=== PATIENT | female | born 1945 | race Caucasian/White ===

== ENCOUNTER → 2023-11-05 13:45 | Outpatient (REF) | payer MEDICARE, OTHER, SELFPAY | LOC: PAVMRI 13:45 | PROVIDERS: ATTENDING PHYSICIAN Internal Medicine Rheumatology; FAMILY PHYSICIAN Family Medicine | DX: M54.50 Low back pain, unspecified (principal) | CPT/HCPCS: 72148 ==

== ENCOUNTER → 2023-11-23 12:52 | Outpatient (REF) | payer MEDICARE, OTHER, SELFPAY ==
[2023-11-23 14:12] LABS: % Basophils 1.4 % (0-2); % Eosinophils 3.5 % (0-6); % Immature Granulocytes 0.4 % (0-0.5); % Lymphocytes 23.9 % (20.5-51.1); % Monocytes 7.9 % (1.7-9.3); % Neutrophils 62.9 % (42.2-75.2); Absolute Basophils 0.1 10^3/uL (0-0.2); Absolute Eosinophils 0.3 10^3/uL (0-0.7); Absolute Lymphocytes 1.9 10^3/uL (1.2-3.4); Absolute Monocytes 0.6 10^3/uL (0.1-0.6); Hematocrit 40.7 % (37.0-47.0); Hemoglobin 14.2 g/dL (12.0-16.0); Mean Corp Hgb Conc. 34.9 g/dL (33.0-37.0); Mean Corpuscular Hgb 31.1 pg (27.0-31.0); Mean Corpuscular Volume 89.3 fL (81.0-99.0); Mean Platelet Volume 9.4 fL (7.4-10.4); Nucleated Red Blood Cells % 0 %; Platelet Count 383 10^3/uL (130-400); Red Blood Cell Count 4.56 10^6/uL (4.20-5.40); Red Cell Dist. Width 13.5 % (11.5-14.5)
[2023-11-23 14:32] LABS: ALT (SGPT) 24 U/L (0-35); AST (SGOT) 35 U/L (14-36); Albumin 4.7 g/dl (3.5-5.0); Alkaline Phosphatase 62 U/L (38-126); Blood Urea Nitrogen 21 mg/dl (7-17); Calcium 10.5 mg/dl (8.4-10.2); Carbon Dioxide 29 mmol/L (22-30); Chloride 97 mmol/L (98-107); Glucose 105 mg/dl (70-99); Potassium 4.3 mmol/L (3.5-5.1); Sodium 135 mmol/L (135-145); Total Bilirubin 0.6 mg/dl (0.2-1.3); Total Protein 7.3 g/dl (6.3-8.2); eGFR > 60.00
== END ==
LOC: RAD 12:52
PROVIDERS: ATTENDING PHYSICIAN Internal Medicine Rheumatology; FAMILY PHYSICIAN Family Medicine
DX: M25.551 Pain in right hip (principal); E55.9 Vitamin D deficiency, unspecified; M54.50 Low back pain, unspecified; M81.0 Age-related osteoporosis without current pathological fracture; Z79.899 Other long term (current) drug therapy
CPT/HCPCS: 36415; 73502; 80053; 85025

== ENCOUNTER → 2024-06-09 14:24 | Outpatient (REF) | payer MEDICARE, OTHER, SELFPAY ==
[2024-06-09 16:23] LABS: % Basophils 1.2 % (0-2); % Eosinophils 3.9 % (0-6); % Immature Granulocytes 0.4 % (0-0.5); % Lymphocytes 31.4 % (20.5-51.1); % Neutrophils 54.1 % (42.2-75.2); Absolute Basophils 0.1 10^3/uL (0-0.2); Absolute Eosinophils 0.3 10^3/uL (0-0.7); Absolute Lymphocytes 2.4 10^3/uL (1.2-3.4); Absolute Monocytes 0.7 10^3/uL (0.1-0.6); Absolute Neutrophils 4.1 10^3/uL (1.4-6.5); Hematocrit 39.8 % (37.0-47.0); Hemoglobin 13.4 g/dL (12.0-16.0); Mean Corp Hgb Conc. 33.7 g/dL (33.0-37.0); Mean Corpuscular Hgb 29.9 pg (27.0-31.0); Mean Corpuscular Volume 88.8 fL (81.0-99.0); Mean Platelet Volume 9.2 fL (7.4-10.4); Nucleated Red Blood Cells % 0 %; Platelet Count 360 10^3/uL (130-400); Red Blood Cell Count 4.48 10^6/uL (4.20-5.40); Red Cell Dist. Width 13.2 % (11.5-14.5); White Blood Cell Count 7.7 10^3/uL (4.8-10.8)
[2024-06-09 16:33] LABS: ALT (SGPT) 22 U/L (0-35); AST (SGOT) 32 U/L (14-36); Albumin 4.5 g/dl (3.5-5.0); Alkaline Phosphatase 42 U/L (38-126); Blood Urea Nitrogen 20 mg/dl (7-17); Calcium 10.5 mg/dl (8.4-10.2); Carbon Dioxide 30 mmol/L (22-30); Chloride 97 mmol/L (98-107); Glucose 89 mg/dl (70-99); Potassium 4.4 mmol/L (3.5-5.1); Sodium 136 mmol/L (135-145); Total Bilirubin 0.4 mg/dl (0.2-1.3); Total Protein 6.7 g/dl (6.3-8.2); eGFR > 60.00
== END ==
LOC: WDC 14:24
PROVIDERS: ATTENDING PHYSICIAN Internal Medicine Rheumatology; FAMILY PHYSICIAN Family Medicine
DX: Z12.31 Encounter for screening mammogram for malignant neoplasm of breast (principal); E55.9 Vitamin D deficiency, unspecified; M25.551 Pain in right hip; M54.50 Low back pain, unspecified; M81.0 Age-related osteoporosis without current pathological fracture; Z79.899 Other long term (current) drug therapy
CPT/HCPCS: 36415; 77063; 77067; 80053; 85025

== ENCOUNTER → 2024-07-14 06:43 | Outpatient (REF) | payer MEDICARE, OTHER, SELFPAY ==
[2024-07-14 07:38] LABS: Ionized Calcium 1.27 mMOL/L (1.15-1.33)
[2024-07-14 08:13] LABS: Calcium 10.7 mg/dl (8.4-10.2); Total Cholesterol 274 mg/dl (50-199); Triglyceride 111 mg/dl (10-149); Very Low Density Lipoprotein 22 mg/dl (0-30)
[2024-07-14 08:24] LABS: HDL Cholesterol 116 mg/dl; LDL Cholesterol, Calculated 136 mg/dl
[2024-07-14 08:29] LABS: Glycohemoglobin (HgbA1c) 5.6 % (4.0-5.6)
[2024-07-14 08:43] LABS: TSH Reflex To Free T4 2.13 uIU/ml (0.47-4.68)
[2024-07-15 10:15] LABS: Intact PTH 86.8 pg/ml (13.6-85.8)
== END ==
LOC: RAD 06:43
PROVIDERS: ATTENDING PHYSICIAN Family Medicine
DX: I71.40 Abdominal aortic aneurysm, without rupture, unspecified (principal); R73.01 Impaired fasting glucose; E83.52 Hypercalcemia; E78.00 Pure hypercholesterolemia, unspecified
CPT/HCPCS: 36415; 76770; 80061; 82330; 83036; 83970; 84443

== ENCOUNTER 2025-02-02 15:06 | Emergency (ER) | payer MEDICARE, OTHER, SELFPAY ==
[2025-02-02 15:17] VITALS: BP 174/104
[2025-02-02 16:01] VITALS: BP 169/80
[2025-02-02 16:54] VITALS: BP 158/77
[2025-02-02 17:06] LABS: % Basophils 1.3 % (0-2); % Eosinophils 6.6 % (0-6); % Immature Granulocytes 0.3 % (0-0.5); % Monocytes 9.4 % (1.7-9.3); % Neutrophils 59.4 % (42.2-75.2); Absolute Basophils 0.1 10^3/uL (0-0.2); Absolute Eosinophils 0.5 10^3/uL (0-0.7); Absolute Lymphocytes 1.6 10^3/uL (1.2-3.4); Absolute Monocytes 0.6 10^3/uL (0.1-0.6); Absolute Neutrophils 4.1 10^3/uL (1.4-6.5); Hematocrit 38.8 % (37.0-47.0); Hemoglobin 13.5 g/dL (12.0-16.0); Mean Corp Hgb Conc. 34.8 g/dL (33.0-37.0); Mean Corpuscular Hgb 30.2 pg (27.0-31.0); Mean Corpuscular Volume 86.8 fL (81.0-99.0); Mean Platelet Volume 8.5 fL (7.4-10.4); Nucleated Red Blood Cells % 0 %; Platelet Count 299 10^3/uL (130-400); Red Blood Cell Count 4.47 10^6/uL (4.20-5.40); Red Cell Dist. Width 13.3 % (11.5-14.5); White Blood Cell Count 6.8 10^3/uL (4.8-10.8)
[2025-02-02 17:20] LABS: Albumin 4.4 g/dl (3.5-5.0); Blood Urea Nitrogen 17 mg/dl (7-17); Calcium 10.3 mg/dl (8.4-10.2); Chloride 102 mmol/L (98-107); Potassium 4.4 mmol/L (3.5-5.1); Sodium 133 mmol/L (135-145); Total Bilirubin 0.4 mg/dl (0.2-1.3)
[2025-02-02 17:23] LABS: Erythrocyte Sed Rate 12 mm/hour (0-20)
[2025-02-02 17:30] LABS: ALT (SGPT) 28 U/L (0-35); AST (SGOT) 34 U/L (14-36); Alkaline Phosphatase 60 U/L (38-126); Carbon Dioxide 26 mmol/L (22-30); Glucose 111 mg/dl (70-99); Total Protein 6.9 g/dl (6.3-8.2); eGFR > 60.00
[2025-02-02] MEDS: VIBRAMYCIN 100 MG PO (17:40)
--- NOTE | 2025-02-02 22:52 | ED.MUSCINJ ---
Addendum entered and electronically signed by Renzo Conde PA-C 02/06/25 08:20:
Pulmonary Lyme test positive. She has had Lyme in the past. Western blot is pending currently on doxycycline
Original Note:
HPI-Injury
General
Chief Complaint: Musculo-Skeletal Complaint
Source: patient
Exam Limitations: none
Time Seen by Provider: 02/02/25 15:38
Nursing documentation reviewed up to this point in time: agreed with
History of Present Illness-Injury
Is this injury a work related problem?: No
Is pt an associate of [facility]?: No
Initial Injury comments:
Patient to ED with complaint of swelling to left ankle. No history of trauma. Noted swelling this AM. Denies fever/chills, recent illness. Denies pain. SHe states she has had lyme disease multiple times in the past. SHe had an extra dose of
doxy at home and she took med this AM. Brought to ED by friend for eval. No prior history of anklke swelling.
Review of Systems
Review of Systems
Allergies reviewed?: Yes
All Other Systems: ROS reviewed and negative except as documented in HPI and ROS
Constitutional: Reports no symptoms
EENT: Reports no symptoms
Respiratory: Reports no symptoms
Cardiac: Reports no symptoms
ABD/GI: Reports no symptoms
Musculoskeletal: Reports joint swelling (swelling to left ankle)
Skin: Reports no symptoms
Neurological: Reports no symptoms
Psychiatric: Reports no symptoms
Musculoskeletal Injury Exam
Musculoskeletal Injury Exam
Left Ankle:
Pain with Movement?: None
Tender to palpation?: None
Soft tissue swelling?: Moderate
External deformity and angulation?: None
Joint effusion?: None
Contusion?: None
Hematoma-local bleeding into tissue?: None
Strain- Sprain- Tear (Connective tissue injury)?: None
Crepitus with movement?: No
Joint instability?: No
Malalignment/deformity?: No
Range of motion: Full
Distal skin color and temperature: normal-warm & good color
Capillary Refill: normal
Normal distal neurovascular exam?: Yes
Phy Exam
General Physical Exam
General Presentation: well appearing and no apparent distress
General age: appears stated age
General Skin: warm and dry
General Habitus: normal
General Mental: alert
Neurological Exam
Neurological Exam: alert, oriented x3, no motor deficits, no sensory deficits, speech normal and normal gait
Musculoskeletal Exam
Musculoskeletal Exam: full ROM and neuro vasc intact
Skin Exam
Skin Exam: normal color, warm/dry and no rash
Psychiatric Exam
Psychiatric Exam: normal mood/affect
Injury Course
Orders/Labs/Results
Orders:
Orders
02/02/25 15:22
Ankle, left 3 view CR [CR Ankle - Left Min 3 Views ] Urgent
Comment:
Reason For Exam: swelling
02/02/25 15:47
Periph Venous Lwr Ext Left US [US Periph Venous LOWER Ext LT] Urgent
Comment:
Reason For Exam: lower leg swelling
02/02/25 17:00
CRP [C-Reactive Protein] Urgent
Complete Blood Count/With Diff Urgent
Comprehensive Metabolic Panel Urgent
Lyme Progressive Urgent
Sed Rate [Erythrocyte Sed Rate] Urgent
02/02/25 17:34
Doxycycline [Vibramycin] 100 mg PO NOW STA
Abnormal Lab Results
02/02/25
17:00
Monocytes % 9.4 H %
(1.7-9.3)
Eosinophils % 6.6 H %
(0-6)
Sodium 133 L mmol/L
(135-145)
Glucose 111 H mg/dl
(70-99)
Calcium 10.3 H mg/dl
(8.4-10.2)
02/02/25 17:00
02/02/25 17:00
*Radiology
Radiology exam reviewed: radiology read reviewed
*Pulse Oximetry
Patient hypoxic: no
*Critical Care Note
Total Time (30-74mins, 75-104mins- exclusive of procedures): Not Applicable
Update Note
Update Note:
US neg for DVT. Labs reviewed with her. WBC, sed rate, CRP normal. No evidence of skin rash. SHe is certain that the swelling is due to lyme. Requesting dose of doxy for tonight which was gven. Titer is pending. She is discharged home and will
follow up with PCP in AM
ED Attending Note
-
Portions of this chart may have been created with voice recognition software.� Occasional wrong word or��sound alike� substitutions may have occurred due to the inherent limitations of voice recognition software.
Discharge Plan
Departure
Patient Disposition: Home (Routine Discharge)
Date of Disposition: 02/02/25
Time of Disposition: 17:35
Patient with high blood pressure during this ER visit?: No
Condition: Good
Covid-19: Not Applicable
Discharge Problem:
Ankle swelling
Instructions: Swollen Joints
Referrals:
Ne Pollock MD [Family Provider] - Tomorrow
Interventions
Interventions:
*Risk Screen - Suicide Last Done: 02/02/25 15:17
*General Assessment Last Done: 02/02/25 16:30
*Neglect/Abuse Screening Last Done: 02/02/25 15:17
*ED- Fall Risk Assessment Last Done: 02/02/25 16:30
*ED COVID-19 Vaccine History Last Done: 02/02/25 16:30
*Nursing Disposition Last Done: 02/02/25 17:43
ED-Musculoskeletal Assessment Last Done: 02/02/25 16:30
Discharge Date and Time
Discharge Date/Time: 02/02/25 17:45
Print Language: [id number]
[2025-02-05 12:15] LABS: Lyme Antibody Screen, EIA Presump. Positive (Negative)
== END 2025-02-02 17:45 | disposition home or self-care (01) ==
LOC: EMR 15:06
PROVIDERS: Nurse Practitioner; EMERGENCY PHYSICIAN Emergency Medicine; FAMILY PHYSICIAN Family Medicine
DX: M25.472 Effusion, left ankle (principal); M79.662 Pain in left lower leg; I10 Essential (primary) hypertension; M81.0 Age-related osteoporosis without current pathological fracture; Z87.898 Personal history of other specified conditions; Z88.2 Allergy status to sulfonamides
CPT/HCPCS: 99284; 73610; 80053; 85025; 85652; 86140; 86617; 86618; 93971